=== PATIENT | female | born 1995 | race Caucasian/White ===

== ENCOUNTER → 2019-10-24 15:01 | Outpatient (CLI) | payer OTHER, SELFPAY ==
[2019-10-24 17:46] LABS: Absolute Lymphocyte Count 2.11 X10^3/uL (0.83-4.51); Absolute Neutrophil Count 7.2 X10^3/uL (2.0-7.7); Basophil# 0.09 X10^3/uL; Basophil% 0.9 % (0-1); Eosinophil# 0.25 X10^3/uL; Eosinophils% 2.4 % (0-5); Hematocrit 35.6 % (37-47); Hemoglobin 11.6 g/dL (12.0-15.0); Lymphocyte # 2.11 X10^3/ul (4.0); Lymphocyte % 20.2 % (19-41); Mean Corp Hgb Conc 32.6 g/dL (32-36); Mean Corpuscular Hgb 33.2 pg (27.0-32.0); Mean Platelet Vol. 10.3 fl (6.2-12.0); Monocyte# 0.82 X10^3/uL; Monocyte% 7.8 % (0-10); NRBC Flagged by Analyzer 0 % (0-5); Neutrophil # 7.17 X10^3/uL (2.7-7.7); Neutrophil % 68.4 % (47-70); POSITIVE COUNT YES; POSITIVE MORPHOLOGY YES; Platelet Count 283 K/mm3 (150-450); RBC Distribution Width CV 18.6 % (11.6-14.6); RBC Distribution Width SD 69.4 fl (35.1-43.9); Red Blood Count 3.49 M/mm3 (4.2-5.4); White Blood Count 10.5 K/mm3 (4.4-11.0)
[2019-10-24 17:48] LABS: ALB/GLOB Ratio 1.3 RATIO (0.9-2.4); AST(SGOT) 16 U/L (15-37); Alanine Aminotransfer ALT/SGPT 23 U/L (13-56); Albumin, Serum 4.4 g/dL (3.2-5.0); Alkaline Phosphatase 38 U/L (45-117); Anion Gap 8 (5-15); BUN 16 mg/dL (7-18); BUN/Creat Ratio 20.5 RATIO (10-20); Calcium,Total 8.7 mg/dL (8.5-10.1); Chloride 108 mmol/L (98-107); Creatinine, Serum 0.78 mg/dL (0.55-1.02); EST Glomerular Filtration Rate 98 mL/min (>60); Est Glom Filt Rate - Afr Amer 119 mL/min (>60); Ferritin 376 ng/mL (8-252); Globulin 3.3 g/dL (2.2-4.2); Glucose 67 mg/dL (74-106); Iron 105 ug/dL (50-170); Iron Binding Capacity,Total 208 ug/dL (250-450); PERCENT IRON SATURATION 50.5 % (15.0-55.0); Potassium 3.2 mmol/L (3.5-5.1); Protein, Total 7.7 g/dL (6.4-8.2); Sodium Level 140 mmol/L (136-145)
[2019-10-24 20:17] LABS: RET-HE 36.1 pg (30-35); Reticulocyte Count 13.33 % (0.5-1.5)
== END ==
DX: D58.0 Hereditary spherocytosis (principal)
CPT/HCPCS: 36415; 80053; 82728; 83540; 83550; 85025; 85045

== ENCOUNTER → 2020-07-08 | Outpatient (CLI) | payer OTHER, SELFPAY ==
[2020-07-09 20:07] LABS: Chlamydia By Nucleic Acid AMP Negative (Negative)
[2020-07-09 20:54] LABS: Gonococcus By Nucleic Acid AMP Negative (Negative)
== END | disposition home or self-care (01) ==
PROVIDERS: Visit Provider Obstetrics & Gynecology
DX: Z12.4 Encounter for screening for malignant neoplasm of cervix (principal); Z11.3 Encounter for screening for infections with a predominantly sexual mode of transmission
CPT/HCPCS: 87491; 87591; 88175; G0145

== ENCOUNTER → 2020-07-15 15:45 | Outpatient (CLI) | payer OTHER, SELFPAY ==
[2020-07-15 17:33] LABS: Glucose, Dipstick Normal (Normal); Ketone-Dipstick Negative (Negative); Leukocyte Esterase-Dipstick 25 /ul (Negative); Nitrite-Dipstick Negative (Negative); Occult Blood-Urine Negative /ul (Negative); Protein-Dipstick Negative (Negative); Urine Bilirubin Dipstick Negative (Negative); Urine Urobilinogen Normal (Normal)
[2020-07-15 17:34] LABS: Absolute Lymphocyte Count 2.26 X10^3/uL (0.83-4.51); Absolute Neutrophil Count 8.7 X10^3/uL (2.0-7.7); Basophil# 0.06 X10^3/uL; Basophil% 0.5 % (0-1); Eosinophil# 0.12 X10^3/uL; Hematocrit 31.9 % (37-47); Hemoglobin 10.6 g/dL (12.0-15.0); Lymphocyte # 2.26 X10^3/ul (4.0); Lymphocyte % 18.6 % (19-41); Mean Corp Hgb Conc 33.2 g/dL (32-36); Mean Corpuscular Volume 102.2 fL (81-99); Mean Platelet Vol. 10.3 fl (6.2-12.0); Monocyte# 0.91 X10^3/uL; Monocyte% 7.5 % (0-10); NRBC Flagged by Analyzer 0 % (0-5); Neutrophil # 8.73 X10^3/uL (2.7-7.7); Platelet Count 275 K/mm3 (150-450); RBC Distribution Width CV 17.3 % (11.6-14.6); Red Blood Count 3.12 M/mm3 (4.2-5.4); White Blood Count 12.1 K/mm3 (4.4-11.0)
[2020-07-15 17:57] LABS: Color, Urine Yellow (Yellow); Urine Clarity Clear (Clear)
[2020-07-15 17:59] LABS: Thyroid Stim Hormone (TSH) 2.14 uIU/mL (0.358-3.74)
[2020-07-16 01:33] LABS: Prenatal RPR NONREACTIVE (NONREACTIVE)
[2020-07-16 09:18] LABS: HIV - WCH Non-Reactive (Nonreactive); Hepatitis B Surface Antigen Non-Reactive (Nonreactive); Hepatitis C Antibody Non-Reactive (Nonreactive); Rubella IgG 109.7 IU/mL
== END ==
PROVIDERS: Visit Provider Obstetrics & Gynecology
DX: Z34.81 Encounter for supervision of other normal pregnancy, first trimester (principal)
CPT/HCPCS: 36415; 81002; 84443; 85025; 86703; 86762; 86803; 87340

== ENCOUNTER → 2021-01-22 10:01 | Outpatient (CLI) | payer OTHER, SELFPAY | PROVIDERS: Visit Provider Obstetrics & Gynecology | DX: Z36.85 Encounter for antenatal screening for Streptococcus B (principal) | CPT/HCPCS: 87081 ==

== ENCOUNTER 2021-02-06 13:30 | Outpatient (CLI) | payer OTHER, SELFPAY ==
[2021-02-06 13:48] VITALS: BMI 31.6
[2021-02-06 13:50] VITALS: BP 137/80; PULSE 77; TEMP 37
[2021-02-06 14:04] VITALS: BP 133/79; PULSE 74
[2021-02-06 14:15] VITALS: BP 134/84; PULSE 77
[2021-02-06 14:27] LABS: Absolute Lymphocyte Count 1.86 X10^3/uL (0.83-4.51); Absolute Neutrophil Count 14.1 X10^3/uL (2.0-7.7); Basophil# 0.07 X10^3/uL; Basophil% 0.4 % (0-1); Eosinophil# 0.07 X10^3/uL; Eosinophils% 0.4 % (0-5); Hematocrit 31.4 % (37-47); Hemoglobin 10.5 g/dL (12.0-15.0); Lymphocyte # 1.86 X10^3/ul (4.0); Lymphocyte % 10.8 % (19-41); Mean Corp Hgb Conc 33.4 g/dL (32-36); Mean Corpuscular Hgb 34.5 pg (27.0-32.0); Mean Corpuscular Volume 103.3 fL (81-99); Mean Platelet Vol. 9.8 fl (6.2-12.0); Monocyte# 1.05 X10^3/uL; Monocyte% 6.1 % (0-10); NRBC Flagged by Analyzer 0.2 % (0-5); Neutrophil # 14.06 X10^3/uL (2.7-7.7); Neutrophil % 81.8 % (47-70); Platelet Count 278 K/mm3 (150-450); RBC Distribution Width CV 16.6 % (11.6-14.6); RBC Distribution Width SD 59.7 fl (35.1-43.9); Red Blood Count 3.04 M/mm3 (4.2-5.4); White Blood Count 17.2 K/mm3 (4.4-11.0)
[2021-02-06 14:35] LABS: Red Blood Cells-Urine 0 SEEN /hpf (0-5)
[2021-02-06 14:36] VITALS: BP 135/81; PULSE 73
[2021-02-06 14:37] LABS: Color, Urine Yellow (Yellow); Glucose, Dipstick Normal (Normal); Ketone-Dipstick Negative (Negative); Leukocyte Esterase-Dipstick 100 /ul (Negative); Nitrite-Dipstick Negative (Negative); Occult Blood-Urine Negative /ul (Negative); Protein-Dipstick Negative (Negative); Specific Gravity, Urine 1.015 (1.002-1.030); Urine Bilirubin Dipstick Negative (Negative); Urine Clarity Sl. Cloudy (Clear); Urine Urobilinogen 1 mg/dl (Normal)
[2021-02-06 14:45] LABS: ALB/GLOB Ratio 0.8 RATIO (0.9-2.4); AST(SGOT) 26 U/L (15-37); Alanine Aminotransfer ALT/SGPT 40 U/L (13-56); Albumin, Serum 2.6 g/dL (3.2-5.0); Alkaline Phosphatase 131 U/L (45-117); Anion Gap 6 (5-15); BUN 13 mg/dL (7-18); BUN/Creat Ratio 17.3 RATIO (10-20); Calcium,Total 8.7 mg/dL (8.5-10.1); Chloride 109 mmol/L (98-107); Creatinine, Serum 0.75 mg/dL (0.55-1.02); EST Glomerular Filtration Rate 102 mL/min (>60); Est Glom Filt Rate - Afr Amer 123 mL/min (>60); Estimated Creatinine Clearance 113.45 ml/min; Globulin 3.4 g/dL (2.2-4.2); Glucose 75 mg/dL (74-106); LDH 216 U/L (84-246); Potassium 3.7 mmol/L (3.5-5.1); Sodium Level 139 mmol/L (136-145)
[2021-02-06 14:47] LABS: Bacteria 2+ /hpf (None Seen); Mucous, Urine RARE /hpf (<or=2+); Squamous Epithelial Cells - UA 0-5 SEEN /hpf (5-10); White Blood Cells 0-5 SEEN /hpf (0-5)
[2021-02-06 14:48] VITALS: BP 132/86; PULSE 70; TEMP 36.8
[2021-02-06 14:49] LABS: Protein, Urine (Random) 15.7 mg/dL (<11.9); Protein:Creat Ratio 173 mg/g CRE (0-200)
[2021-02-06 14:51] VITALS: BP 142/86; PULSE 74
--- NOTE | 2021-02-07 10:16 | PN_ITS ---
Progress Note 25-year-old G1, P0 at 38/1 weeks presenting with elevated blood pressures at home. Patient reported severe range pressures at home. Denied preeclampsia symptoms: Headache, vision changes, chest pain, dyspnea, nausea, vomiting, edema, RUQ pain. Physical exam was within normal limits. NST reactive: 145/moderate variability/plus accelerations/no decelerations. [place]: Quiet. Vital Signs (72 hours) 02/06/21 13:50 02/06/21 14:04 02/06/21 14:15 Temperature 98.6 F Pulse Rate 77 74 77 Blood Pressure 137/80 H 133/79 H 134/84 H 02/06/21 14:36 02/06/21 14:48 02/06/21 14:51 Temperature 98.3 F Pulse Rate 73 70 74 Blood Pressure 135/81 H 132/86 H 142/86 H Laboratory Tests 02/06/21 02/06/21 02/06/21 Range/Units 14:30 14:30 14:20 WBC (4.4-11.0) K/mm3 RBC (4.2-5.4) M/mm3 Hgb (12.0-15.0) g/dL Hct (37-47) % MCV (81-99) fL MCH (27.0-32.0) pg MCHC (32-36) g/dL RDW Std Deviation (35.1-43.9) fl RDW Coeff of Barbara (11.6-14.6) % Plt Count (150-450) K/mm3 MPV (6.2-12.0) fl Immature Gran % (Auto) (0.0-0.9) % Neut % (Auto) (47-70) % Lymph % (Auto) (19-41) % [place] % (Auto) (0-10) % Eos % (Auto) (0-5) % Baso % (Auto) (0-1) % Absolute Neuts (auto) (2.0-7.7) X10^3/uL Absolute Lymphs (auto) (0.83-4.51) X10^3/uL Nucleated RBC % (0-5) % Sodium 139 (136-145) mmol/L Potassium 3.7 (3.5-5.1) mmol/L Chloride 109 H (98-107) mmol/L Carbon Dioxide 24.0 (21.0-32.0) mmol/L Anion Gap 6 (5-15) BUN 13 (7-18) mg/dL Creatinine 0.75 (0.55-1.02) mg/dL Estim Creat Clear Calc 113.45 ml/min Est GFR (MDRD) Af Amer 123 (>60) mL/min Est GFR (MDRD) Non-Af 102 (>60) mL/min BUN/Creatinine Ratio 17.3 (10-20) RATIO Glucose 75 (74-106) mg/dL Calcium 8.7 (8.5-10.1) mg/dL Total Bilirubin 3.10 H (0.20-1.00) mg/dL AST 26 (15-37) U/L ALT 40 (13-56) U/L Alkaline Phosphatase 131 H (45-117) U/L Lactate Dehydrogenase 216 (84-246) U/L Total Protein 6.0 L (6.4-8.2) g/dL Albumin 2.6 L (3.2-5.0) g/dL Globulin 3.4 (2.2-4.2) g/dL Albumin/Globulin Ratio 0.8 L (0.9-2.4) RATIO Urine Color Yellow (Yellow) Urine Clarity Sl. Cloudy (Clear) Urine pH 6.0 (5.0 - 8.0) Ur Specific [place] 1.015 (1.002-1.030) Urine Protein Negative (Negative) mg/dl Urine Glucose (UA) Normal (Normal) mg/dl Urine Ketones Negative (Negative) mg/dl Urine Occult Blood Negative (Negative) /ul Urine Nitrite Negative (Negative) Urine Bilirubin Negative (Negative) mg/dL Urine Urobilinogen 1 H (Normal) mg/dl Ur Leukocyte Esterase 100 H (Negative) /ul Urine RBC 0 SEEN (0-5) /hpf Urine WBC 0-5 SEEN (0-5) /hpf Ur Squamous Epith Cells 0-5 SEEN (5-10) /hpf Urine Bacteria 2+ (None Seen) /hpf Urine Mucus RARE (<or=2+) /hpf U Random Total Protein 15.7 H (<11.9) mg/dL Urine Creatinine 90.50 (NO RANGE EST.) mg/dL Protein/Creatinin Ratio 173 (0-200) mg/g CRE 04/03/21 Range/Units 14:20 WBC 17.2 H (4.4-11.0) K/mm3 RBC 3.04 L (4.2-5.4) M/mm3 Hgb 10.5 L (12.0-15.0) g/dL Hct 31.4 L (37-47) % MCV 103.3 H (81-99) fL MCH 34.5 H (27.0-32.0) pg MCHC 33.4 (32-36) g/dL RDW Std Deviation 59.7 H (35.1-43.9) fl RDW Coeff of Barbara 16.6 H (11.6-14.6) % Plt Count 278 (150-450) K/mm3 MPV 9.8 (6.2-12.0) fl Immature Gran % (Auto) 0.500 (0.0-0.9) % Neut % (Auto) 81.8 H (47-70) % Lymph % (Auto) 10.8 L (19-41) % [place] % (Auto) 6.1 (0-10) % Eos % (Auto) 0.4 (0-5) % Baso % (Auto) 0.4 (0-1) % Absolute Neuts (auto) 14.1 H (2.0-7.7) X10^3/uL Absolute Lymphs (auto) 1.86 (0.83-4.51) X10^3/uL Nucleated RBC % 0.2 (0-5) % Sodium (136-145) mmol/L Potassium (3.5-5.1) mmol/L Chloride (98-107) mmol/L Carbon Dioxide (21.0-32.0) mmol/L Anion Gap (5-15) BUN (7-18) mg/dL Creatinine (0.55-1.02) mg/dL Estim Creat Clear Calc ml/min Est GFR (MDRD) Af Amer (>60) mL/min Est GFR (MDRD) Non-Af (>60) mL/min BUN/Creatinine Ratio (10-20) RATIO Glucose (74-106) mg/dL Calcium (8.5-10.1) mg/dL Total Bilirubin (0.20-1.00) mg/dL AST (15-37) U/L ALT (13-56) U/L Alkaline Phosphatase (45-117) U/L Lactate Dehydrogenase (84-246) U/L Total Protein (6.4-8.2) g/dL Albumin (3.2-5.0) g/dL Globulin (2.2-4.2) g/dL Albumin/Globulin Ratio (0.9-2.4) RATIO Urine Color (Yellow) Urine Clarity (Clear) Urine pH (5.0 - 8.0) Ur Specific [place] (1.002-1.030) Urine Protein (Negative) mg/dl Urine Glucose (UA) (Normal) mg/dl Urine Ketones (Negative) mg/dl Urine Occult Blood (Negative) /ul Urine Nitrite (Negative) Urine Bilirubin (Negative) mg/dL Urine Urobilinogen (Normal) mg/dl Ur Leukocyte Esterase (Negative) /ul Urine RBC (0-5) /hpf Urine WBC (0-5) /hpf Ur Squamous Epith Cells (5-10) /hpf Urine Bacteria (None Seen) /hpf Urine Mucus (<or=2+) /hpf U Random Total Protein (<11.9) mg/dL Urine Creatinine (NO RANGE EST.) mg/dL Protein/Creatinin Ratio (0-200) mg/g CRE Vitals and labs were within normal limits. Assessment/plan: 25-year-old G1 at 38/5 weeks presenting with elevated blood pressures at home. Blood pressures within normal limits while in triage. Labs were also within normal limits no evidence of gestational hypertension or preeclampsia at this time. Patient to follow-up this week in office. Monitor signs and symptoms of preeclampsia at home and blood pressures. Patient to notify with severe range blood pressures. Return with elevated blood pressure or signs of preeclampsia.
== END 2021-02-06 14:55 | disposition home or self-care (01) ==
LOC: WPOUT 13:38 → OBT 13:39
PROVIDERS: Visit Provider Student in an Organized Health Care Education/Training Program
DX: O26.893 Other specified pregnancy related conditions, third trimester (principal); R03.0 Elevated blood-pressure reading, without diagnosis of hypertension; O99.893 Other specified diseases and conditions complicating puerperium; D58.0 Hereditary spherocytosis; Z3A.38 38 weeks gestation of pregnancy
CPT/HCPCS: 36415; 59025; 59050; 80053; 81001; 82570; 83615; 84156; 85025; 99218; G0378

== ENCOUNTER 2021-02-10 08:45 | Inpatient (IN) | payer SELFPAY, OTHER ==
[2021-02-10] VITALS (15 sets, daily range): BP systolic 127–158; BP diastolic 65–88; PULSE 76–128; RESP 18; TEMP 37.1–37.4; O2SAT 97–99; BMI 31.1
[2021-02-10] MEDS: Lactated Ringers 1,000 ML 50 ML IV (09:40)
[2021-02-10 10:04] LABS: Hematocrit 39.9 % (37-47); Hemoglobin 13.2 g/dL (12.0-15.0); Mean Corp Hgb Conc 33.1 g/dL (32-36); Mean Corpuscular Hgb 34.9 pg (27.0-32.0); Mean Corpuscular Volume 105.6 fL (81-99); Mean Platelet Vol. 10.7 fl (6.2-12.0); Platelet Count 304 K/mm3 (150-450); RBC Distribution Width CV 16.8 % (11.6-14.6); RBC Distribution Width SD 61.1 fl (35.1-43.9); Red Blood Count 3.78 M/mm3 (4.2-5.4); White Blood Count 20.5 K/mm3 (4.4-11.0)
[2021-02-10] MEDS: Oxytocin 30 units/NS 500 ml 30 UNITS/500 ML IV.SOLN IV (10:15)
[2021-02-10 10:16] LABS: AST(SGOT) 31 U/L (15-37); Alanine Aminotransfer ALT/SGPT 35 U/L (13-56); EST Glomerular Filtration Rate 111 mL/min (>60); Est Glom Filt Rate - Afr Amer 134 mL/min (>60); Estimated Creatinine Clearance 121.55 ml/min; Uric Acid 5.2 mg/dL (2.6-6.0)
[2021-02-10 10:36] LABS: Protein, Urine (Random) 148.3 mg/dL (<11.9); Protein:Creat Ratio 3401 mg/g CRE (0-200)
[2021-02-10] MEDS: Oxytocin 30 units/NS 500 ml 30 UNITS/500 ML IV.SOLN 334 UNITS IV (12:35)
--- NOTE | 2021-02-10 12:43 | HP.PCM_ITS ---
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 moderate hydronephrosis. DICTATED BY: MARKIE DENNY MD ON 10/28/2020 AT 11:33 APPROVED BY: MARKIE DENNY MD ON 10/28/2020 AT 11:35 == ==== Impression /Plan: 38 wks + 5 days intrauterine for induction for gest ational hypertension. Plan rupture of membranes and Pitocin. Preparations in progress for delivery.
--- NOTE | 2021-02-10 12:47 | PCM.OPRPT ---
Vaginal Delivery Maternal Presentation: Medically Indicated Induction - Gestational Hypertension Method of Induction: Pitocin, Amniotomy Medical Reason for Induction: Gestational Hypertension Amniotic Membrane Rupture Type: Artificial Amniotic Fluid Description: Clear Final DAMIEN: 02/19/21 Final DAMIEN Source: US <20 weeks Gestational age: 38 Weeks and 5 Days Date of Procedure: 02/10/21 Pre-Operative Diagnosis: IUP, gestational hypertension Post-Operative Diagnosis: IUP, gestational hypertension Surgery/ Procedure Performed: Spontaneous Vaginal Delivery Type of Anesthesia: Local with 1% lidocaine Description of Procedure: Spontaneous vaginal delivery of a viable male with Apgars of 9/9 from an occiput anterior presentation with clear amniotic fluid and normal three-vessel placenta. No episiotomy. Second-degree midline laceration repaired with 3-0 Rapide suture under local. Sponges okay. Delivery physician: Pedro Luis Barbosa MD. Presentation: Vertex Placental Delivery Description: Spontaneous Placenta Disposition: [facility] Cord Vessel Description: 3 Vessels Cord Entanglement: None Estimated Blood Loss: 250 cc Infant A gender: Male (1 minute): 9 (5 minute): 9 Episiotomy Description: None Laceration: Midline, 2nd degree Medications given after delivery: IV Pitocin Complications: None
--- NOTE | 2021-02-10 12:51 | DCINST_ITS ---
<Pedro Luis Barbosa - Last Filed: 02/10/21 12:51> Discharge Activity: May Shower, May Take a Tub Bath May resume sexual activity in: 4-6 weeks Additional Activity Instructions:: Nothing in the vagina for 4-6 weeks. You may return to work/school in 6 weeks. Call your doctor if you observe: Inability to urinate, Inability to have a bowel movement, Using more than one pad per hour Additional Instructions: If you experience any of the following, contact your healthcare provider. * Bleeding that soaks a pad every hour for 2 hours * Fever 100.4 or higher * Unrelieved incision or abdominal pain * Swelling, redness, discharge or bleeding from your incision or episiotomy site * Your incision begins to separate * Problems urinating (including inability to urinate or burning while urinating). * Visual changes * Severe headache * Flu-like symptoms * Pain or redness in one of both of your breasts * Pain, warmth, tenderness or swelling in your legs, especially the calf area * Frequent nausea and vomiting * Symptoms of depression or anxiety If you experience any of the following, call 911 or go to the nearest Emergency Room. * Chest pain * Problems breathing * Seizure activity * Partial or complete paralysis of a body part, slurred speech, weakness or drooping of the face, or a sudden inability to walk or hold your balance Allergies/Adverse Reactions: Allergies Sulfa (Sulfonamide Antibiotics) Allergy (Verified 02/10/21 09:30) Swelling Medications to take at Discharge Folic Acid 1 mg PO TID 02/06/21 Vit No.130/Iron/Folic [ Tablet] 1 each PO BID 02/06/21 Please Follow Up With: Pedro Luis Barbosa MD - [phone] When: Call to make an appointment with your doctor in 6 weeks. Primary Care Physician: TITUS LUNDBERG [Other] Test Results: Test results from this visit will be discussed in further detail at your follow- up appointment, if applicable. <Selvin Zimmer - Last Filed: 02/12/21 08:35> Additional Instructions: If you experience any of the following, contact your healthcare provider. * Bleeding that soaks a pad every hour for 2 hours * Fever 100.4 or higher * Unrelieved incision or abdominal pain * Swelling, redness, discharge or bleeding from your incision or episiotomy site * Your incision begins to separate * Problems urinating (including inability to urinate or burning while urinating). * Visual changes * Severe headache * Flu-like symptoms * Pain or redness in one of both of your breasts * Pain, warmth, tenderness or swelling in your legs, especially the calf area * Frequent nausea and vomiting * Symptoms of depression or anxiety If you experience any of the following, call 911 or go to the nearest Emergency Room. * Chest pain * Problems breathing * Seizure activity * Partial or complete paralysis of a body part, slurred speech, weakness or drooping of the face, or a sudden inability to walk or hold your balance When: To call with 1 week blood pressure check Test Results: Test results from this visit will be discussed in further detail at your follow- up appointment, if applicable.
[2021-02-10] MEDS: Acetaminophen 500 MG Tablet 1000 MG PO (16:35)
--- NOTE | 2021-02-10 19:41 | NURSING ---
Pt's called nurses to room. Patient states she felt like she had peed but felt something come out. This RN and Ronel RN assisted patient and large clots were found in tyson pad. Will weigh clots. Fundus firm at umbilicus. Some oozing with fundal massage but stopped. Will continue to monitor. Pad and linens changed, new ice pack applied.
--- NOTE | 2021-02-10 20:13 | NURSING ---
Clots weighed 610 grams-tyson pad also possibly with some urine.
--- NOTE | 2021-02-10 21:44 | NURSING ---
Pt up to bathroom and voided 100mls, no clots noted and small amount of bleeding. Pt sat for a couple minutes and then c/o ringing in ears. Staff alerted and pt assisted back to bed with 3 RNs standing by, pt declined use of wheelchair. Once in bed, dermoplast and tucks applied to perineum. Pt states she is feeling better.
--- NOTE | 2021-02-10 23:29 | NURSING ---
Patient assisted to bathroom by kota RN and Warren SEWELL. Pt did well initially and after voided stated that she had ringing in her ears. Ammonia salt used and pt instructed to take deep breaths through nose and mouth. Pt sat for a few minutes, then assisted back to bed. Pt states she is feeling better.
[2021-02-11] VITALS (11 sets, daily range): BP systolic 106–131; BP diastolic 56–80; PULSE 93–123; RESP 14–16; TEMP 36.6–37.1; O2SAT 98–99
[2021-02-11] MEDS: 0.9% Saline Lock 10 ML Syringe IV (00:40)
[2021-02-11] MEDS: Ibuprofen 600 MG Tablet PO ×2 (00:49→17:12)
[2021-02-11 06:02] LABS: Absolute Lymphocyte Count 2.99 X10^3/uL (0.83-4.51); Absolute Neutrophil Count 18.1 X10^3/uL (2.0-7.7); Basophil# 0.08 X10^3/uL; Basophil% 0.3 % (0-1); Eosinophil# 0.04 X10^3/uL; Eosinophils% 0.2 % (0-5); Hematocrit 26.7 % (37-47); Hemoglobin 8.5 g/dL (12.0-15.0); Lymphocyte # 2.99 X10^3/ul (4.0); Lymphocyte % 12.8 % (19-41); Mean Corp Hgb Conc 31.8 g/dL (32-36); Mean Corpuscular Hgb 35.4 pg (27.0-32.0); Mean Corpuscular Volume 111.3 fL (81-99); Mean Platelet Vol. 10.4 fl (6.2-12.0); Monocyte% 8.6 % (0-10); NRBC Flagged by Analyzer 0.3 % (0-5); Neutrophil # 18.07 X10^3/uL (2.7-7.7); Neutrophil % 77.5 % (47-70); POSITIVE DIFFERENTIAL YES; POSITIVE MORPHOLOGY YES; Platelet Count 327 K/mm3 (150-450); RBC Distribution Width SD 68.7 fl (35.1-43.9); White Blood Count 23.3 K/mm3 (4.4-11.0)
[2021-02-11 06:04] LABS: Differential Indicated SCAN CRITERIA MET
[2021-02-11 06:20] LABS: Spherocyte 2+
--- NOTE | 2021-02-11 08:05 | PCM.PN.OB ---
Subjective: Patient with mild discomfort overnight. Feeling better this morning. - Physical Exam Vitals/I&O's: Vital Signs Temp Pulse Resp BP Pulse Ox 97.9 F 95 16 106/56 L 98 02/11/21 04:25 02/11/21 04:25 02/11/21 04:25 02/11/21 04:25 02/11/21 00:35 Oxygen Delivery Method Room Air Weight: 199 lb Body Mass Index (BMI) 31.1 Intake and Output for Last 24 Hours 02/09/21 02/10/21 02/11/21 23:59 23:59 23:59 Intake Total 653.83 / 653.83 Balance 653.83 / 653.83 General: Alert, Oriented x3, Cooperative, No apparent distress HEENT: Atraumatic, Normocephalic Oral: Moist Mucosa Neck: Supple, No JVD Abdomen: Soft, Non Tender, - - Uterus firm and below umbilicus Extremities: No clubbing, No cyanosis, No edema Neurological: Neuro grossly intact Psych/Mental Status: Normal Affect, Appropriate, Alert and oriented to time, place, person, mood and affect Microbiology Past 72 Hours 02/10/21 09:25 Mucosa - Nose SARS-CoV-2 Antigen (Rapid) - Final Laboratory Results 02/10/21 09:40: Blood Type A POSITIVE, Antibody Screen NEGATIVE 02/10/21 09:40: WBC 20.5 H, RBC 3.78 L, Hgb 13.2, Hct 39.9, MCV 105.6 H, MCH 34.9 H, MCHC 33.1, RDW Std Deviation 61.1 H, RDW Coeff of Barbara 16.8 H, Plt Count 304, MPV 10.7 02/10/21 09:40: Creatinine 0.70, Estim Creat Clear Calc 121.55, Est GFR (MDRD) Af Amer 134, Est GFR (MDRD) Non-Af 111, Uric Acid 5.2, AST 31, ALT 35 02/10/21 10:15: U Random Total Protein 148.3 H, Urine Creatinine 43.60, Protein/Creatinin Ratio 3401 H 02/11/21 05:30: WBC 23.3 H, RBC 2.40 L, Hgb 8.5 L, Hct 26.7 L, MCV 111.3 H D, MCH 35.4 H, MCHC 31.8 L, RDW Std Deviation 68.7 H, RDW Coeff of Barbara 18.0 H, Plt Count 327, MPV 10.4, Immature Gran % (Auto) 0.600, Neut % (Auto) 77.5 H, Lymph % (Auto) 12.8 L, [place] % (Auto) 8.6, Eos % (Auto) 0.2, Baso % (Auto) 0.3, Absolute Neuts (auto) 18.1 H, Absolute Lymphs (auto) 2.99, Nucleated RBC % 0.3, Diff Path Review May foll, Spherocytes 2+ H Current Medications Acetaminophen (Acetaminophen 500 Mg Tablet) 1,000 mg PO Q8H PRN PRN PRN Reason: Pain Score 1-3 Last Admin: 02/10/21 16:35 Dose: 1,000 mg Documented by: Bisacodyl (Bisacodyl 10 Mg Suppository) 10 mg RC UD PRN PRN Reason: If no BM Dibucaine (Dibucaine 30 Gm Tube) 1 applic TOPICAL TID PRN PRN; Protocol PRN Reason: Discomfort Hydrocortisone (Hydrocortisone 2.5% Crm) 1 applic TOPICAL TID PRN PRN; Protocol PRN Reason: Discomfort Ibuprofen (Ibuprofen 600 Mg Tablet) 600 mg PO Q6H PRN PRN PRN Reason: Pain Score 1-3 Last Admin: 02/11/21 00:49 Dose: 600 mg Documented by: Methylergonovine Maleate (Methylergonovine 0.2 Mg/Ml Ampul) 0.2 mg IM X1 PRN PRN Reason: Excess bleeding/uterine atony Ondansetron HCl (Ondansetron 4 Mg/2 Ml Vial) 4 mg IV Q4H PRN PRN PRN Reason: Nausea Oxycodone HCl (Oxycodone 5 Mg Tablet) 5 - 10 mg PO Q4H PRN PRN PRN Reason: Pain Score 4-10 Senna/Docusate Sodium (Senna/Docusate Sodium 1 Tablet) 1 - 2 tablet PO DAILY PRN PRN PRN Reason: Constipation Simethicone (Simethicone 80 Mg Tablet) 80 mg PO PCHS PRN PRN Reason: Indigestion/Stomach pain Sodium Chloride (0.9% Saline Lock 10 Ml Syringe) 5 - 15 ml IV UD PRN PRN Reason: SALINE FLUSH Last Admin: 02/11/21 00:40 Dose: 10 ml Documented by: Throat Lozenges (Benzocaine/Lanolin/Aloe Vera 1 Applic Each) 1 applic TOPICAL 4X/DAY PRN PRN; Protocol PRN Reason: vaginal discomfort Last Admin: 02/10/21 21:40 Dose: 1 applic Documented by: Zolpidem Tartrate (Zolpidem Tartrate 5 Mg Tablet) 5 mg PO QHS PRN PRN PRN Reason: Insomnia Medical Necessity - Tobacco Use Smoking Status: Never smoker Assessment/Plan day 1. Pain control improved this morning. Acute blood loss anemia, for iron daily when home-going. Overall vital signs stable. Mildly elevated blood pressures with gestational hypertension, will need blood pressure check in 1 week. Patient considering home today but probably home tomorrow. Desires to take blood pressure at home and call in 1 week with travel issues to the office.
[2021-02-12 00:30] VITALS: BP 120/72; PULSE 99; RESP 18; TEMP 36.9; O2SAT 100
[2021-02-12 00:32] VITALS: BP 120/72; PULSE 105; O2SAT 100
[2021-02-12 03:57] VITALS: BP 106/60; PULSE 88
[2021-02-12 04:00] VITALS: BP 106/60; PULSE 90; RESP 18; TEMP 36.9; O2SAT 96
[2021-02-12 07:59] VITALS: BP 122/64; PULSE 105
[2021-02-12 08:00] VITALS: BP 122/64; PULSE 105; RESP 18; TEMP 36.6
[2021-02-12] MEDS: Senna/Docusate Sodium 1 Tablet PO (08:12)
--- NOTE | 2021-02-12 08:35 | PCM.PN.OB ---
Subjective: Pain much improved, now resolved. No dizziness or weakness. - Physical Exam Vitals/I&O's: Vital Signs Temp Pulse Resp BP Pulse Ox 97.9 F 105 H 18 122/64 H 96 02/12/21 08:00 02/12/21 08:00 02/12/21 08:00 02/12/21 08:00 02/12/21 04:00 Oxygen Delivery Method Room Air Weight: 199 lb Body Mass Index (BMI) 31.1 Intake and Output for Last 24 Hours 02/10/21 02/11/21 02/12/21 23:59 23:59 23:59 Intake Total 653.83 / 653.83 Balance 653.83 / 653.83 General: Alert, Oriented x3, Cooperative, No apparent distress HEENT: Atraumatic, Normocephalic Oral: Moist Mucosa Neck: Supple Abdomen: Soft, Non Tender Extremities: No clubbing, No cyanosis, No edema Neurological: Neuro grossly intact Psych/Mental Status: Normal Affect, Appropriate, Alert and oriented to time, place, person, mood and affect Microbiology Past 72 Hours 02/10/21 09:25 Mucosa - Nose SARS-CoV-2 Antigen (Rapid) - Final Current Medications Acetaminophen (Acetaminophen 500 Mg Tablet) 1,000 mg PO Q8H PRN PRN PRN Reason: Pain Score 1-3 Last Admin: 02/10/21 16:35 Dose: 1,000 mg Documented by: Bisacodyl (Bisacodyl 10 Mg Suppository) 10 mg RC UD PRN PRN Reason: If no BM Dibucaine (Dibucaine 30 Gm Tube) 1 applic TOPICAL TID PRN PRN; Protocol PRN Reason: Discomfort Hydrocortisone (Hydrocortisone 2.5% Crm) 1 applic TOPICAL TID PRN PRN; Protocol PRN Reason: Discomfort Ibuprofen (Ibuprofen 600 Mg Tablet) 600 mg PO Q6H PRN PRN PRN Reason: Pain Score 1-3 Last Admin: 02/11/21 17:12 Dose: 600 mg Documented by: Methylergonovine Maleate (Methylergonovine 0.2 Mg/Ml Ampul) 0.2 mg IM X1 PRN PRN Reason: Excess bleeding/uterine atony Ondansetron HCl (Ondansetron 4 Mg/2 Ml Vial) 4 mg IV Q4H PRN PRN PRN Reason: Nausea Oxycodone HCl (Oxycodone 5 Mg Tablet) 5 - 10 mg PO Q4H PRN PRN PRN Reason: Pain Score 4-10 Senna/Docusate Sodium (Senna/Docusate Sodium 1 Tablet) 1 - 2 tablet PO DAILY PRN PRN PRN Reason: Constipation Last Admin: 02/12/21 08:12 Dose: 2 tablet Documented by: Simethicone (Simethicone 80 Mg Tablet) 80 mg PO PCHS PRN PRN Reason: Indigestion/Stomach pain Sodium Chloride (0.9% Saline Lock 10 Ml Syringe) 5 - 15 ml IV UD PRN PRN Reason: SALINE FLUSH Last Admin: 02/11/21 00:40 Dose: 10 ml Documented by: Throat Lozenges (Benzocaine/Lanolin/Aloe Vera 1 Applic Each) 1 applic TOPICAL 4X/DAY PRN PRN; Protocol PRN Reason: vaginal discomfort Last Admin: 02/10/21 21:40 Dose: 1 applic Documented by: Zolpidem Tartrate (Zolpidem Tartrate 5 Mg Tablet) 5 mg PO QHS PRN PRN PRN Reason: Insomnia Medical Necessity - Tobacco Use Smoking Status: Never smoker Assessment/Plan day 2. Pain well controlled now. Breast-feeding. No weakness with acute blood loss anemia. Gestational pretension blood pressures well controlled and asymptomatic, will call with blood pressure check in 1 week. Okay to discharge home today.
[2021-02-15 12:15] LABS: Pathologist Review Reviewed
--- NOTE | 2021-02-16 19:12 | NURSING ---
Follow up phone call complete. Spoke to Sayra by phone.
== END 2021-02-12 11:35 | disposition home or self-care (01) | DRG 807 ==
PROVIDERS: Admitting Provider Obstetrics & Gynecology; Visit Provider Obstetrics & Gynecology
DX: O13.4 Gestational [pregnancy-induced] hypertension without significant proteinuria, complicating childbirth (principal); Z37.0 Single live birth; Z3A.38 38 weeks gestation of pregnancy; D58.0 Hereditary spherocytosis; O70.1 Second degree perineal laceration during delivery
CPT/HCPCS: 59025; 59050; 82565; 82570; 84156; 84450; 84460; 84550; 85025; 85027; 86850; 86900; 86901; 87426; 99218; J7120; A4216; G0378

== ENCOUNTER 2021-11-09 13:30 | Outpatient (CLI) | payer OTHER, SELFPAY ==
[2021-11-11 21:06] LABS: Chlamydia By Nucleic Acid AMP Negative (Negative)
[2021-11-12 15:29] LABS: Gonococcus By Nucleic Acid AMP Negative (Negative)
== END 2021-11-09 23:59 | disposition short-term general hospital (02) ==
LOC: LABSPEC 11-10 09:14
PROVIDERS: Visit Provider Obstetrics & Gynecology
DX: Z11.3 Encounter for screening for infections with a predominantly sexual mode of transmission (principal)
CPT/HCPCS: 87491; 87591

== ENCOUNTER 2022-02-08 16:54 | Outpatient (CLI) | payer OTHER, SELFPAY ==
[2022-02-08 17:22] LABS: Hematocrit 36.3 % (37-47); Hemoglobin 11.3 g/dL (12.0-15.0); Mean Corp Hgb Conc 31.1 g/dL (32-36); Mean Corpuscular Hgb 34.3 pg (27.0-32.0); Mean Corpuscular Volume 110.3 fL (81-99); Mean Platelet Vol. 9.8 fl (6.2-12.0); POSITIVE MORPHOLOGY YES; Platelet Count 274 K/mm3 (150-450); RBC Distribution Width CV 23.2 % (11.6-14.6); RBC Distribution Width SD 91.4 fl (35.1-43.9); Red Blood Count 3.29 M/mm3 (4.2-5.4); White Blood Count 15.5 K/mm3 (4.4-11.0)
[2022-02-08 17:35] LABS: Ferritin 192 ng/mL (8-252); Glucose Challenge Gest 1H 50g 63 mg/dL (70-140)
== END 2022-02-08 23:59 | disposition home or self-care (01) ==
LOC: LABSPEC 16:54
PROVIDERS: Visit Provider Obstetrics & Gynecology
DX: Z34.83 Encounter for supervision of other normal pregnancy, third trimester (principal); D58.0 Hereditary spherocytosis
CPT/HCPCS: 82728; 82950; 85027

== ENCOUNTER → 2022-04-05 | Outpatient (CLI) | payer OTHER, SELFPAY | END | disposition home or self-care (01) | LOC: LABSPEC 15:48 | PROVIDERS: Visit Provider Obstetrics & Gynecology | DX: Z36.85 Encounter for antenatal screening for Streptococcus B (principal) | CPT/HCPCS: 87081 ==

== ENCOUNTER 2022-04-20 06:25 | Inpatient (IN) | payer SELFPAY, OTHER ==
[2022-04-20] VITALS (34 sets, daily range): BP systolic 114–144; BP diastolic 56–92; PULSE 75–108; RESP 16; TEMP 36.2–36.7; O2SAT 98–100; BMI 29.0
[2022-04-20] MEDS: Lactated Ringers 1,000 ML 999 ML IV (08:15)
[2022-04-20 08:34] LABS: Absolute Lymphocyte Count 2.02 X10^3/uL (0.83-4.51); Absolute Neutrophil Count 10.8 X10^3/uL (2.0-7.7); Basophil# 0.06 X10^3/uL; Basophil% 0.4 % (0-1); Eosinophil# 0.14 X10^3/uL; Hematocrit 32.2 % (37-47); Hemoglobin 10.4 g/dL (12.0-15.0); Lymphocyte # 2.02 X10^3/ul (0.83-4.51); Lymphocyte % 14.3 % (19-41); Mean Corp Hgb Conc 32.3 g/dL (32-36); Mean Corpuscular Volume 108.4 fL (81-99); Mean Platelet Vol. 9.6 fl (6.2-12.0); Monocyte# 0.92 X10^3/uL; Monocyte% 6.5 % (0-10); NRBC Flagged by Analyzer 0.4 % (0-5); Neutrophil # 10.83 X10^3/uL (2.7-7.7); Neutrophil % 76.9 % (47-70); Platelet Count 250 K/mm3 (150-450); RBC Distribution Width CV 16.1 % (11.6-14.6); RBC Distribution Width SD 60.6 fl (35.1-43.9); Red Blood Count 2.97 M/mm3 (4.2-5.4); White Blood Count 14.1 K/mm3 (4.4-11.0)
[2022-04-20] MEDS: Oxytocin 30 units/NS 500 ml 30 UNITS/500 ML IV.SOLN IV (08:35)
--- NOTE | 2022-04-20 08:42 | PCM.HP.BLA ---
History and Physical Date of Admission: 04/20/22 ACOG ANTEPARTUM RECORD - HISTORY AND PHYSICAL (04/20/2022) Name: RAKAN SEN History of this : This is a 26 year old [id number] presents at 38 wks + 6 days gestation for induction for maternal spherocytosis. OB Physician: Pedro Luis Barbosa MD [place]'s Physician: Rebel ...................................................................... : 1995 Age: 26 Address: [address] [place] [address] Phone: H) [phone] (O) [phone] Insurance Carrier: [employer] [phone] Emergency Contact: ODALIS SEN/SPOUSE [phone] ...................................................................... Final DAMIEN: 04/28/22 By Ultrasound: 21 weeks 5 days PARITY: (G-Total Pregnancies P-Fullterm,Premature,Induced AB,Spont AB, Ectopics, Multiple,Living) DAMIEN CONFIRMATION: By LMP: 08/02/21 By First Ultrasound Exam: 04/28/22 Final DAMIEN: 04/28/22 OB PROBLEM LIST: Baby should be treated as presumed hereditary spherocytosis; see note in chart from Ant Gonzalez for pediatric management recommendations Declines genetic and carrier screening Gest HTN with first Hyper bilirubinemia longstanding from spherocytosis--weekly NST until 35 weeks then twice weekly; U/S for growth 32-34 weeks; delivery 39 weeks or sooner if needed Pt with hereditary spherocytosis. On folic acid. Spleen mildly enlarged. Still has GB. --check ferritin with CBC done with 28 week labs Sister and brother with dev delays, unknown cause Ventricullmegaly and placenta previa; pelvic rest and refer to MFM --no previa per MFM; Ventricles assymetrical but normal per MFM; check u/s for growth 32 weeks and start weekly NST 32 weeks ALLERGIES: No Known Drug Allergies Sulfa (Sulfonamide Antibiotics) Intolerance-unknown MEDICATIONS: folic acid 1 mg tablet One pill by mouth three times a day Supplement (s) [No Strength] usana prenatals SOCIAL HISTORY: Smoking - Never Alcohol Use - denies drinking Diet - moderate, balanced diet Lifestyle - low stress lifestyle and Exercise - minimal Job Description - Homemaker Illicit Drug Use - denies use of street drugs Sexual Activity - and [employer] Residence - lives with Place of - [place], [place] Spouse-Sig Other Name - Odalis Sen Spouse-Sig Other Occupation - construction Spouse-Sig Other Phone No - [phone] Children Name(s) - Yemi(02/24) PRIOR DELIVERY HISTORY DEL DATE GEST LAB WT LB WT OZ TYPE ANES LABOR TX 07 Feb 24 38 [phone] 7 15 Vag Local No ANTEPARTUM FLOW CHART VISIT GE RTC FU F F WY U U DATE WK MD WKS HT PN HR M SS BP ED WT WY GL D EF ST __ ____ ___ __ __ ___ __ __ __ ___ __ __ __ ___ __ 14 Apr JMW 4 36 V + + 112/70 tr 186 tr ne 4 75 -2 Apr JMW 1 37 + + 90/60 sl 192 tr ne March JM 1 36 V + + 110/56 sl 189 ne ne 2 March JMW 2 34 + + 118/64 sl 188 - - March JMW 2 32 + + 124/68 0 187 - - Mar 03 JMW 4 28 + + 122/74 0 181 tr - Jan 29 JMW 2 26 + 120/72 178 - - Dec 26 JMW 4 20 + + 126/64 0 171 - - ANTEPARTUM NOTE(S): Apr 19 2022: Good FM, induce, jaundice Apr 12 2022: Good FM and NST Reactive Apr 05 2022: Mar 22 2022: declines 1 week f/u NST; good FM Mar 09 2022: Good FM, BPP 06/13Feb 08 2022: labs drawn Jan 25 2022: Good FM Dec 21 2021: Refer MFM COMPREHENSIVE ANTEPARTUM NOTE(S): Apr 19 2022: Rakan is here for NST and visit. Baby active. Feeling well. Has had times of crampiness/contr that don't last. NST reactive per Dr COVARRUBIAS. She would like cervix check today. . Apr 12 2022: rakan is here at 37.5 w for NST and visit. Feeling well. Baby active. Some contr at home but mild, irreg. Reminded about pre-registering and paper given. Discussed entering hospital after hours and questions answered. . Apr 07 2022: GBS neg Apr 05 2022: Rakan is here at 36.5 w gest for NST and visit. Feeling well. Baby active. NST read reactive by Dr SANCHEZ. For GBS culture today. Explained and form signed. LARC discussed and signed declined. KAREN. Apr 05 2022: 36wks, GBS today. NST reactive. For weekly NSTs. LAURA Mar 22 2022: Rakan is here at 34 w 5 d for her NST. She is familiar with EEFM and NST. She states that she is feeling well, and reports good FM. Rakan denies spotting/LoF. Occasional mild cramping felt. Slight edema noted below knees, especially around R ankle. NST reactive, read per Dr. Barbosa. AW Feb 08 2022: Pressure improved and not using maternity support belt. Labs drawn today for CBC, GCT,and Ferritin. LMT Jan 25 2022: Glucola given with instructions. Reporting pressure when she is on her feet. Pressure feeling does go away when she is off her feet. She has occ pain on her L side that was relieved with BM. Advised some discomfort is normal. Closely spaced pregnancies. Encouraged her to try maternity support belt when she is on her feet. Call if not relieved with getting off feet, going to bathroom, increased flu Dec 21 2021: Rakan is 20weeks here for PNV good FM no edema. no concerns or questions at this time. BR Dec 16 2021: TELEHEALTH NOB VISIT, 25 MINUTE DURATION. Rakan is a 25 year old with an DAMIEN of 05/10/2022, current GA is 19 w 2 d. She is a homemaker, and resides with her , Odalis, and their young son, Yemi, who was born in February of 2021. Her son was delivered vaginally at [facility]. Past history updated, Delivery at [facility] Is planned, she prefers not to have an epidural, but is not opposed if Nov 09 2021: Rakan presents here today for Missed Menses appointment. 25 y.o. G 2 P 1 non-smoker with LMP of -27-21 lasting her average of 3-4 days. Stopped breast feeding the first part of Jul. from in 02/[address] [facility] with SATISH. UPT is positive today in our Office. Presents here today at 14 weeks by LMP and reports slight nausea, fatigue and tender breasts. Denies spotting/bleeding thus far in . Nov 09 2021: ok REVIEW OF SYSTEMS: GENERAL - Denies fever, or chills SKIN - Denies rash, new skin lesions, or change in moles EYES - Denies blurred vision, or change in visual acuity EARS - Denies ear pain, or difficulty hearing NOSE - Denies nasal congestion, discharge, or bleeding MOUTH - Denies sore throat, or difficulty swallowing NECK - Denies pain or swelling RESPIRATORY - Denies shortness of breath, cough, wheezing CARDIOVASCULAR - Denies palpitations, chest pain, orthopnea, PND, peripheral edema, syncope or claudication GASTROINTESTINAL - Denies nausea, vomiting, diarrhea, constipation, Denies abdominal pain, melena and or bright red blood GENITOURINARY - Denies dysuria, frequency of urination, urgency, or hesitancy MUSCULOSKELETAL - Denies joint or muscle pain, or back pain NEUROLOGICAL - Denies localized numbness, weakness, or tingling PSYCHIATRIC - Denies depression, anxiety, substance abuse or suicide attempts ENDOCRINE - Denies heat or cold intolerance, weight loss or gain, increasing thirst HEMATO-IMMUNOLOGIC - Denies easy bruising, bleeding, oral ulcerations or recurrent infections GENETICS SCREENING: Age 35+ years: No Thalassemia: No Neural Tube Defect: No Down Syndrome: No SARITHA-SACHS: No Sickle Cell Disease: No Hemophilia: No Musc. Dystrophy: No Cystic Fibrosis: No-declines screening Nata Chorea: No Mental Retardation: Yes Fragile X: No Other genetic: No Other defects: No SABs/still births: No Drugs since LMP: No Comments: Hereditary Spherocytosis INFECTION HISTORY: High risk AIDS: No High risk Hepatitis: No Exposed to TB: No Exposed to Herpes: No Rash/viral illness since LMP: No History of STD: No MENSTRUAL HISTORY: *Menses Amount/Duration: 3-4 DAYSMenses Regularity: RegularFrequency: monthlyMenarche (Age Onset): 12* PAST SUMMARY: PARITY: 1. Total Pregnancies............ 2 2. Full Term Pregnancies........ 1 3. Premature.................... 0 4. Abortions - Induced.......... 0 5. Abortions - Spontaneous...... 0 6. Ectopics..................... 0 7. Multiple Births.............. 0 8. Living Children.............. 1 PAST #1: Date of :.................. 02/10/21 Gestation Weeks:................ 38 Length of labor(hours):......... 6 Sex:............................ M Weight-lbs:............... 7 Weight-oz:................ 15 Type of Delivery:............... Vag Type of Anesthesia:............. Local Place of Delivery:.............. [place] Treatment of Labor?:.... No Comment: PIT, GEST. HTN PHYSICAL EXAMINATION General Appearence: 26 yo female in no acute distress Vital Signs: AF, VSS Heart: RRR without rubs or gallops Lungs: CTA x 2 Breasts: deferred Abdomen: gravid Pelvis: Cervix: Presentation: cephalic Station: Fetus: Size: AGA Movement: present Heart: present LAB TEST(S) ORDERED SINCE:08/01/21 04/08/2022 RULE OUT BETA STREP (GRP. B) 02/08/2022 GLUCOSE CHALLENGE GEST 1H 50G 02/08/2022 FERRITIN 02/08/2022 CBC-COMPLETE BLOOD CNT NO DIFF 11/20/2021 RUBELLA IGG ANTIBODY [CCL] 11/20/2021 RPR [CCL] 11/20/2021 PROGESTERONE [CCL] 11/20/2021 HEPATITIS C AB IA [CCL] 11/20/2021 HEP B SURFACE AG [CCL] 11/17/2021 URINALYSIS 11/17/2021 TSH 11/17/2021 CBC + DIFF 11/17/2021 BB TYPE 11/12/2021 CHLAMYDIA/GC ANGEL APTIMA == ==== Order Observation Description Value Ref_Range A* Site == ==== RULE OUT BETA S NOTE GRADY FERRITIN NOTE GRADY FERRITIN FERRITIN 192 ng/mL 8-252 ML GLUCOSE CHALLEN NOTE GRADY GLUCOSE CHALLEN GLU GEST 50G 1H 63 mg/dL 70-140 L ML CBC-COMPLETE BL NOTE GRADY CBC-COMPLETE BL WBC 15.5 K/mm3 4.4-11.0 H ML CBC-COMPLETE BL RBC 3.29 M/mm3 4.2-5.4 L ML CBC-COMPLETE BL HGB 11.3 g/dL 12.0-15.0 L ML CBC-COMPLETE BL HCT 36.3 37-47 L ML CBC-COMPLETE BL MCV 110.3 fL 81-99 H ML CBC-COMPLETE BL MCH 34.3 pg 27.0-32.0 H ML CBC-COMPLETE BL MCHC 31.1 g/dL 32-36 L ML CBC-COMPLETE BL RDW CV 23.2 11.6-14.6 H ML CBC-COMPLETE BL RDW SD 91.4 fl 35.1-43.9 H ML CBC-COMPLETE BL PLT 274 K/mm3 150-450 ML CBC-COMPLETE BL MPV 9.8 fl 6.2-12.0 ML RPR [CCL] NOTE [facility] RPR [CCL] RPR Non Reactive NR [place] [id number] Juan Grant III, M.D. [id number] HEPATITIS C AB NOTE [facility] HEPATITIS C AB HEPATITIS C AB IA Negative NEGAT [place] [id number] Juan Grant III, M.D. [id number] HEP B SURFACE A NOTE [facility] HEP B SURFACE A REFLEX HBSAGC? NO [facility] HEP B SURFACE A HEPATITIS B SURF. AG Negative NEGAT [place] [id number] Juan Grant III, M.D. [id number] RUBELLA IGG ANT NOTE [facility] RUBELLA IGG ANT RUBELLA IGG AB, QUAL Positive NEGAT A [facility] Sample is considered positive for IgG antibodies to rubella virus. A positive result indicates previous exposure to Rubella virus or vaccination. RUBELLA IGG ANT RUBELLA IGG AB 1.82 Indexlue [facility] Index values are interpreted as follows: Negative specimens <0.90 Equivocol specimens 0.90 to 0.99 Positive specimens >0.99 The magnitude of the measured result is not indicative of the amount of antibody present. [place] [id number] Juan Grant III, M.D. [id number] PROGESTERONE [C NOTE [facility] PROGESTERONE [C PROGESTERONE 25.8 ng/mL [facility] Menstrual Cycle Progesterone Reference Ranges: Follicular:<1.0 ng/mL Ovulation:<12.1 ng/mL Luteal:1.8 to 23.9 ng/mL Progesterone Reference Ranges vary by gestational period: First Trimester:11.0 to 44.3 ng/mL Second trimester: 25.4 to 83.3 ng/mL Third trimester: 58.7 to 214 ng/mL Post menopausal Progesterone:<0.5 ng/mL Reference: 1. Progesterone (Progesterone III) [package insert V 1.0 Macedonian]. [facility], [place], [place]. August 2015. [place] [id number] Juan Grant III, M.D. [id number] BB TYPE NOTE [facility] BB TYPE BB TYPE [facility] TYPE, Rh, AND SCREEN BB TYPE ABO A [facility] BB TYPE RH POS [facility] BB TYPE ANTIBODY SCR negative [facility] URINALYSIS NOTE [facility] URINALYSIS URINALYSIS [facility] URINALYSIS SPECIMEN TYPE Void [facility] URINALYSIS COLOR brown NORMAL: YELLOW [facility] CLARITY clear NORMAL: CLEAR [facility] PH 5 NORMAL: 5.0-8.0 [facility] PROTEIN 15 NORMAL: NEGATIV A [facility] GLUCOSE NORM NORMAL: NORMAL [facility] KETONE 5 NORMAL: NEGATIV A [facility] BILIRUBIN NEG NORMAL: NEGATIV [facility] BLOOD 10 NORMAL: NEGATIV A [facility] UROBILINOG 12 NORMAL: NORMAL A [facility] SP GRAVITY 1.025 NORMAL: 1.010-1 [facility] NITRITE NEG NORMAL: NEGATIV [facility] LEUKOCYTES 100 NORMAL: NEGATIV A [facility] MICROSCOPIC SEE BELOW [facility] MICROSCOPIC URINALYSIS WBC 1-5 0-5/hpf [facility] URINALYSIS RBC NONE 0-3/hpf [facility] URINALYSIS CASTS NONE [facility] URINALYSIS CRYSTALS SEE BELOW [facility] URINALYSIS CALCIUM OX 2+ NORMAL: NONE [facility] URINALYSIS AMORPHOUS NONE [facility] URINALYSIS BACTERIA 4+ [facility] URINALYSIS EPI CELLS MANY [facility] MUCOUS NONE [facility] YEAST NONE [facility] CBC + DIFF NOTE [facility] CBC + DIFF CBC + DIFF [facility] CBC-COMPLETE BLOOD COUNT CBC + DIFF WBC 10.3 x 10EE3/UL 4.5 - 10.8 [facility] CBC + DIFF RBC 2.93 x 10EE6/UL 4.10 - 5.30 L [facility] CBC + DIFF HEMOGLOBIN 9.7 g/dl 12.0 - 16.0 L [facility] CBC + DIFF HEMATOCRIT 28.2 % 34.0 - 46.0 L [facility] CBC + DIFF MCV 96 fl 80 - 99 [facility] CBC + DIFF MCH 33 pg 27 - 33 [facility] CBC + DIFF MCHC 34 X10 3 32 - 36 [facility] CBC + DIFF RDW/CV 17.9 % 12.0 - 15.6 H [facility] CBC + DIFF PLATELET 271 x10EE3/UL 150 - 450 [facility] CBC + DIFF MPV 7.9 fl 6.6 - 10.5 [facility] AUTOMATED DIFFERENTIAL CBC + DIFF NEUT % 69.1 % 46.0 - 76.0 [facility] CBC + DIFF LYMPH % 18.8 % 20.0 - 45.0 L [facility] CBC + DIFF MONOS % 9.4 % 0.0 - 10.0 [facility] CBC + DIFF EO % 1.9 % 0.0 - 7.0 [facility] CBC + DIFF BASO % 0.8 % 0.0 - 2.0 [facility] CBC + DIFF LYMPH # 1.90 x10EE3/UL 0.80 - 2.80 [facility] CBC + DIFF NEUT # 7.10 x10EE3/UL 1.50 - 7.10 [facility] CBC + DIFF MONO # 1.00 x10EE3/UL 0.20 - 1.00 [facility] CBC + DIFF EO # 0.20 x10EE3/UL 0.00 - 0.50 [facility] CBC + DIFF BASO # 0.10 x10EE3/UL 0.00 - 0.10 [facility] CBC + DIFF MANUAL DIFF N/A [facility] CBC + DIFF MORPHOLOGY N/A [facility] {CD] TSH NOTE [facility] TSH TSH 2.67 uIU/ml 0.35 - 3.74 [facility] CHLAMYDIA/GC NA NOTE GRADY CHLAMYDIA/GC NA CHLAMY,NUC ACID Negative Negative [facility] CHLAMYDIA/GC NA GC BY NUC ACID Negative Negative LCI Performed at: =[facility] [id number] Infection Control Coordinator: Radha Parada MD, Phone: [phone] Group B Beta Streptococcus is not isolated. == ==== Impression /Plan: 38 wks + 6 days intrauterine for pitocin induction. Preparations in progress for delivery.
[2022-04-20] MEDS: LACTATED RINGERS 500 ML 999 ML IV (10:44)
[2022-04-20 11:26] LABS: AST(SGOT) 29 U/L (15-37); Alanine Aminotransfer ALT/SGPT 30 U/L (13-56); Albumin, Serum 2.5 g/dL (3.2-5.0); Alkaline Phosphatase 151 U/L (45-117); Bilirubin, Direct 2.77 mg/dL (0.00-0.30); Globulin 3.6 g/dL (2.2-4.2); Protein, Total 6.1 g/dL (6.4-8.2)
[2022-04-20] MEDS: fentaNYL-bupivacaine (epidural) 100 ML BAG EPIDURAL (11:33)
[2022-04-20] MEDS: Oxytocin 30 units/NS 500 ml 30 UNITS/500 ML IV.SOLN 334 UNITS IV (12:27)
--- NOTE | 2022-04-20 12:40 | EX.PCM.OBRPT ---
Vaginal Delivery Maternal Presentation Maternal Presentation: Medically Indicated Induction (Maternal Spherocytosis) Type of Induction: Pitocin and Amniotomy Operative Information Date of Procedure: 04/20/22 Pre-Operative Diagnosis: IUP Post-Operative Diagnosis: IUP Surgery / Procedure Performed: Spontaneous Vaginal Delivery Type of Anesthesia: Epidural Estimated Blood Loss: 250 cc Findings Description of Procedure: Spontaneous vaginal delivery of a viable male with Apgars of 8/9 from an occiput anterior presentation with clear amniotic fluid and normal three-vessel placenta. Second-degree midline episiotomy repaired with 3-0 Rapide suture under epidural. No laceration. Sponges okay. Delivery physician: Pedro Luis Barbosa MD. Presentation: Vertex Amniotic Membrane Rupture Type: Spontaneous Amniotic Fluid Description: Clear Placental Delivery Description: Spontaneous Placenta Disposition: [facility] Cord Entanglement: None Infant A Gender: Male (1 minute): 8 (5 minute): 9 Post Vaginal Delivery Medications Given After Delivery: IV Pitocin Episiotomy Description: Midline and 2nd degree Laceration: None Complication Complications: None
[2022-04-20] MEDS: Ibuprofen 600 MG Tablet PO ×2 (13:45→19:45)
[2022-04-20] MEDS: Acetaminophen 500 MG Tablet 1000 MG PO ×2 (16:27→23:46)
[2022-04-20] MEDS: Benzocaine/Lanolin/Aloe Vera 1 SPRAY EACH TOPICAL (19:45)
[2022-04-21] VITALS (10 sets, daily range): BP systolic 115–126; BP diastolic 58–71; PULSE 67–91; RESP 16–18; TEMP 36.5–36.7; O2SAT 98
[2022-04-21] MEDS: Ibuprofen 600 MG Tablet PO ×2 (08:00→17:59)
--- NOTE | 2022-04-21 08:11 | PN.OBGYN_ITS ---
Subjective Subjective No Overnight complaints Objective Data Objective Data Vital Signs: Vital Signs Temp Pulse Resp BP Pulse Ox 98.1 F 77 16 115/71 99 04/21/22 07:47 04/21/22 07:48 04/21/22 03:36 04/21/22 07:48 04/20/22 16:23 Oxygen Delivery Method Room Air Weight: 185 lb 8 oz Body Mass Index (BMI) 29.0 Intake & Output: Intake and Output for Last 24 Hours 04/19/22 04/20/22 04/21/22 23:59 23:59 23:59 Intake Total 1913.18 / 1913.18 Output Total 200 / 200 Balance 1713.18 / 1713.18 Lab / Micro Data Result Diagrams: 04/20/22 08:15 Labs: Laboratory Results - last 24 hr 04/20/22 08:15: WBC 14.1 H, RBC 2.97 L, Hgb 10.4 L, Hct 32.2 L, MCV 108.4 H, MCH 35.0 H, MCHC 32.3, RDW Std Deviation 60.6 H, RDW Coeff of Barbara 16.1 H, Plt Count 250, MPV 9.6, Immature Gran % (Auto) 0.900, Neut % (Auto) 76.9 H, Lymph % (Auto) 14.3 L, [place] % (Auto) 6.5, Eos % (Auto) 1.0, Baso % (Auto) 0.4, Absolute Neuts (auto) 10.8 H, Absolute Lymphs (auto) 2.02, Nucleated RBC % 0.4 04/20/22 08:15: Blood Type A POSITIVE, Antibody Screen NEGATIVE 04/20/22 10:30: Total Bilirubin 5.80 H, Direct Bilirubin 2.77 H, AST 29, ALT 30, Alkaline Phosphatase 151 H, Total Protein 6.1 L, Albumin 2.5 L, Globulin 3.6 Micro: Microbiology 04/20/22 08:15 Nasal Secretion SARS-CoV-2 Antigen (Rapid) - Final Physical Exam Const alert, oriented x3, no apparent distress, average body habitus, healthy appearing and well nourished HEENT normocephalic Eyes PERRL Neck full ROM Resp normal respiratory effort, no retractions and no use of accessory muscles GI GI Narrative: Soft, nontender, uterus firm and below umbilicus Extremity normal to inspection, full ROM and no clubbing, cyanosis or edema Skin no rashes or lesions noted and no jaundice Psych mental status grossly normal, affect normal, speech normal and activity/motor behavior normal Assessment & Plan (1) Vaginal delivery: PLAN: day 1. Breast-feeding. Pain well controlled. Okay to dischar ge home if okay with blindstitch lining feller
--- NOTE | 2022-04-21 08:11 | DCINST_ITS ---
Discharge Instructions Diet Discharge Diet: No restrictions Activity Discharge Activity: Return to Normal Activity, May Drive and May Shower May resume sexual activity in: 4-6 weeks Weight Bearing Status: Weight bearing as tolerated Dressing / Incision Call your doctor if your incision/area has: Continuous Slow Oozing and Foul Smelling Discharge Call your doctor if you observe: Fever of 101 or Higher, Shortness of breath and Chest pain Follow Up Care Please Follow Up With: Pedro Luis Barbosa MD When: 2 week telehealth, 4 to 6 week Test Results: Test results from this visit will be discussed in further detail at your follow- up appointment, if applicable. Discharge Plan Admission Admit Date/Time: 04/20/22 06:25 Attending Provider: Pedro Luis Barbosa Primary Care Provider: TITUS LUNDBERG Discharge Orders/Prescriptions Prescriptions: No Action folic acid 1 MG tablet 1 mg PO TID vit no.[id number] 1 EACH tablet 1 each PO BID Referrals / Follow Up: TITUS LUNDBERG [Other] Disposition Discharge Orders: Discharge Patient (Routine); Ordered 04/21/22 Ordered By: Dr. Selvin Zimmer
[2022-04-21] MEDS: Acetaminophen 500 MG Tablet 1000 MG PO (13:33)
[2022-04-22 02:40] VITALS: BP 117/59; PULSE 78; RESP 16; TEMP 36.4; O2SAT 100
[2022-04-22 02:41] VITALS: BP 117/59; PULSE 80
[2022-04-22] MEDS: Ibuprofen 600 MG Tablet PO ×2 (06:31→12:49)
--- NOTE | 2022-04-22 07:42 | PCM.DC.BLA ---
Discharge Summary Date of Admission: 04/20/22 Date of Discharge: 04/22/22 Summary: Patient arrived on 04/20/2022 for induction of labor, subsequently delivered on 04/20/2022 vaginally. course only complicated by pediatric conditions, baby to special care nursery. Patient discharge to [facility] status on 04/22/2022 Meaningful Use Info Meaningful Use Diagnoses (Choose all that apply): None applicable Discharge Plan Admission Admit Date/Time: 04/20/22 06:25 Primary Reason for Your Visit: Induction of labor Attending Provider: Pedro Luis Barbosa Primary Care Provider: TITUS LUNDBERG Instructions Additional Instructions / Restrictions: Regular diet, weightbearing as tolerated, okay to drive, no intercourse for 4 to 6 weeks, okay to shower. Call if fevers, chills, chest pain, shortness of breath. Follow-up 2-week telehealth, 4 to 6 weeks Discharge Orders/Prescriptions Prescriptions: No Action folic acid 1 MG tablet 1 mg PO TID vit no.[id number] 1 EACH tablet 1 each PO BID Referrals / Follow Up: TITUS LUNDBERG [Other] Disposition Discharge Orders: Discharge Patient (Routine); Ordered 04/22/22 Ordered By: Dr. Selvin Zimmer
--- NOTE | 2022-04-22 07:44 | PCM.PN.OB ---
Subjective Subjective No overnight complaint Objective Data Objective Data Vital Signs: Vital Signs Temp Pulse Resp BP Pulse Ox 97.6 F L 80 16 117/59 L 100 04/22/22 02:40 04/22/22 02:41 04/22/22 02:40 04/22/22 02:41 04/22/22 02:40 Oxygen Delivery Method Room Air Weight: 185 lb 8 oz Body Mass Index (BMI) 29.0 Intake & Output: Intake and Output for Last 24 Hours 04/20/22 04/21/22 04/22/22 23:59 23:59 23:59 Intake Total 1920.78 / 1920.78 Output Total 200 / 200 Balance 1720.78 / 1720.78 Lab / Micro Data Result Diagrams: 04/20/22 08:15 Micro: Microbiology 04/20/22 08:15 Nasal Secretion SARS-CoV-2 Antigen (Rapid) - Final Physical Exam Const alert, oriented x3, no apparent distress, average body habitus, healthy appearing and well nourished HEENT normocephalic and moist oral mucous membranes Eyes PERRL Neck full ROM Resp normal respiratory effort, no retractions and no use of accessory muscles GI GI Narrative: Soft, nontender, uterus firm and below umbilicus Extremity normal to inspection, full ROM and no clubbing, cyanosis or edema Neuro moves all extremities Psych mental status grossly normal, affect normal, speech normal and activity/motor behavior normal Assessment & Plan (1) Vaginal delivery: PLAN: Plan day 2. Breast-feeding. Pain well controlled. Discharge to hotel status today
[2022-04-22 09:05] VITALS: BP 123/75; PULSE 98; RESP 17; TEMP 36.5; O2SAT 99
[2022-04-22 09:06] VITALS: PULSE 101; TEMP 36.6; O2SAT 100
[2022-04-22 09:07] VITALS: BP 123/75; PULSE 120
[2022-04-22] MEDS: Acetaminophen 500 MG Tablet 1000 MG PO (12:07)
[2022-04-22 12:50] VITALS: BP 122/77; PULSE 82; RESP 17; TEMP 36.4
== END 2022-04-22 13:00 | disposition home or self-care (01) | DRG 807 ==
PROVIDERS: Obstetrics & Gynecology; Admitting Provider Obstetrics & Gynecology; Referring Provider Obstetrics & Gynecology; Visit Provider Obstetrics & Gynecology
DX: O99.413 Diseases of the circulatory system complicating pregnancy, third trimester (principal); Z37.0 Single live birth; D58.0 Hereditary spherocytosis; O99.02 Anemia complicating childbirth; Z20.822 Contact with and (suspected) exposure to COVID-19; Z3A.38 38 weeks gestation of pregnancy
CPT/HCPCS: 59025; 59050; 80076; 85025; 86850; 86900; 86901; 87426; 99218; J7120; G0378